=== PATIENT | female | born 2000 | race Hispanic/Latino ===

== ENCOUNTER 2020-02-04 16:43 | Emergency (ER) | payer OTHER, SELFPAY ==
[2020-02-04 16:52] VITALS: BP 129/79; PULSE 127; RESP 16; TEMP 36.7; O2SAT 96; BMI 24.9
--- NOTE | 2020-02-04 16:58 | ED_ITS ---
HPI - Nausea/Vomiting/Diarrhea <MARTELL Ni - Last Filed: 02/04/20 20:58> General Chief complaint: Nausea/Vomiting/Diarrhea Stated complaint: 11wks , not keeping food down, rash on denae Time Seen by Provider: 02/04/20 16:53 Source: patient Mode of arrival: Wheelchair Limitations: no limitations History of Present Illness HPI Narrative: 19yo female who is currently 11 weeks , presents to the emergency department for hyperemesis. Patient states she has dealt with v omiting multiple times a day since beginning of her . She was seen in her primary care provider's office today for evaluation of the rash on her back that has been present for the past 3 weeks. She describes it as pruritic and slowly spreading. However, during the appointment she had an increased heart rate of approximately 140bpm, patient was referred to the emergency department for fluid and treatment if hyperemesis. She is currently being set up with a PICC line and scheduled IV fluids but this has not established at this time yet. She has Zofran and Phenergan suppositories at home. She has stopped taking the Phenergan suppositories as she feels like it is giving her yeast infection. Patient denies any abdominal pain, vaginal bleeding, dizziness, chest pain, shortness of breath, fevers, sore throat, dysuria, or any other concerns. Patient states she last vomited approximately 2 hours ago before her appointment. Related Data Previous Rx's Medication Instructions Recorded cephalexin 500 mg PO QID 7 Days #28 cap 02/04/20 metoclopramide HCl [Reglan] 10 mg PO Q6H PRN #14 tab 02/04/20 mupirocin 1 applictn TOP BID #22 gram 02/04/20 Allergies Allergy/AdvReac Type Severity Reaction Status Date / Time Penicillins Allergy Verified 02/04/20 19:18 Review of Systems <MARTELL Ni - Last Filed: 02/04/20 20:58> Review of Systems Narrative: REVIEW OF SYSTEMS: GENERAL: Denies fevers or chills. HENT: No head trauma. EYES: No vision changes. CARDIOVASCULAR: No chest pain. RESPIRATORY: No shortness of breath or cough. GASTROINTESTINAL: Complains vomiting, see HPI GENITOURINARY: No flank pain, urinary incontinence, hesitancy, frequency, or dysuria. No vaginal discharge or dyspareunia. Denies concerns for STIs. No vaginal bleeding. MUSCULOSKELETAL: No pain, weakness, or trauma. INTEGUMENTARY: No rash, lesions, or pruritus. NEURO: No numbness, tingling, memory loss, confusion, or headaches. PSYCH: No behavior or mood changes. Patient History <MARTELL Ni - Last Filed: 02/04/20 20:58> Social History Smoking Status: Never smoker Smoking Status: Never smoker Substance Use Type: does not use Exam <MARTELL Ni - Last Filed: 02/04/20 20:58> Initial Vital Signs Initial Vital Signs: Vital Signs Temperature 98.0 F 02/04/20 16:52 Pulse Rate 127 H 02/04/20 16:52 Respiratory Rate 16 02/04/20 16:52 Blood Pressure 129/79 02/04/20 16:52 Pulse Oximetry 96 02/04/20 16:52 PHYSICAL EXAMINATION: GENERAL: Well groomed, alert, and cooperative. Answers questions promptly and appropriately. Vital signs noted. HENT: Normocephalic, atraumatic. Hearing intact. Oral mucosa is pink and moist. EYES: Conjunctiva pink, sclera white, no periorbital swelling. CARDIOVASCULAR: S1 and S2 sounds normal. Regular rate and rhythm, no murmurs, clicks, or bruits. No pedal edema. RESPIRATORY: Normal respiratory rate, trachea midline, airway patent. No stridor, nasal flaring or accessory muscle use. Lungs are clear in all onofre without wheeze, rhonchi, or crackles. GASTROINTESTINAL: Bowel sounds normoactive. Abdomen is soft and non-tender. No organomegaly, no palpable masses. GENITALURINARY: No flank tenderness. MUSCULOSKELETAL: Normal gait and coordination. Equal tone and mass bilaterally. EXTREMITIES: CMS intact, no pedal edema. SKIN: Warm, dry, soft, appropriate color for ethnicity. Multiple patches of mildly erythemic raised papules with an occasional pustule noted on patient's left shoulder extending to her back, reports pruritus. NEURO: Alert and Oriented X 3. Good coordination. No ataxia, or sensory deficits, or cognitive issues. PSYCH: Appropriate affect and mood. <Salo Barfield MD - Last Filed: 02/05/20 02:26> Initial Vital Signs Initial Vital Signs: Vital Signs Temperature 98.0 F 02/04/20 16:52 Pulse Rate 127 H 02/04/20 16:52 Respiratory Rate 16 02/04/20 16:52 Blood Pressure 129/79 02/04/20 16:52 Pulse Oximetry 96 02/04/20 16:52 Course <Josy MARTELL Marie - Last Filed: 02/04/20 20:58> Course Course Narrative: 181: Patient states she is feeling much better, no vomiting since 1500 today, reports feeling less nauseated. HR currently 104. Discussed few trial and treatment of rash. 163: OB unable to find heart tones at this time due to young gestation. Patient able to keep pills and water down without vomiting. Continues to feel better. 0: Patient given a 3rd L of fluids as she has not urinated at this time, continues to denies nausea vomiting. Patient able a case fluids down at this time. 0: Patient able to urinate at this time, 3rd L finished. Patient feels comf ortable being discharged, patient feels, this time Orders Ordered: ED Orders 02/04/20 20:40 Urine Culture Stat Urine Microscopic Stat Discontinued Medications Cephalexin HCl (Keflex) 500 mg PO NOW ONE Stop: 02/04/20 19:16 Last Admin: 02/04/20 19:19 Dose: 500 mg Documented by: MMCFARL Sodium Chloride (Normal Saline 0.9%) 1,000 mls @ 1,000 mls/hr IV BOLUS ONE Stop: 02/04/20 17:52 Last Infusion: 02/04/20 18:05 Dose: 0 mls/hr Documented by: Admin: 02/04/20 17:15 Dose: 1,000 mls/hr Documented by: RSTONE Sodium Chloride (Normal Saline 0.9%) 1,000 mls @ 1,000 mls/hr IV BOLUS ONE Stop: 02/04/20 18:34 Last Infusion: 02/04/20 19:15 Dose: 1,000 mls/hr Documented by: Admin: 02/04/20 18:08 Dose: 1,000 mls/hr Documented by: RSTONE Sodium Chloride (Normal Saline 0.9%) 1,000 mls @ 150 mls/hr IV CONT MADELINE Last Admin: 02/04/20 18:13 Dose: Not Given Documented by: ELVA Sodium Chloride (Normal Saline 0.9%) 1,000 mls @ 1,000 mls/hr IV BOLUS ONE Stop: 02/04/20 20:21 Last Infusion: 02/04/20 20:34 Dose: 1,000 mls/hr Documented by: LUIS ALFREDO Admin: 02/04/20 19:23 Dose: 1,000 mls/hr Documented by: LUIS ALFREDO Metoclopramide HCl (Reglan) 10 mg IV NOW ONE Stop: 02/04/20 16:54 Last Admin: 02/04/20 17:16 Dose: 10 mg Documented by: ELVA Ondansetron HCl (Zofran) 4 mg IV NOW ONE Stop: 02/04/20 16:54 Last Admin: 02/04/20 17:16 Dose: 4 mg Documented by: ELVA Potassium Chloride (Klor-Con M20) 40 meq PO NOW ONE Stop: 02/04/20 18:11 Last Admin: 02/04/20 18:23 Dose: 40 meq Documented by: ELVA Consultations Consultation #1: Vital Signs Vital signs: Vital Signs - 8 hr 02/04/20 19:16 02/04/20 19:17 Pulse Rate 105 H 102 H Blood Pressure 110/67 Pulse Oximetry 100 100 <Salo Barfield MD - Last Filed: 02/05/20 02:26> Orders Ordered: ED Orders 02/04/20 20:40 Urine Culture Stat Urine Microscopic Stat Discontinued Medications Cephalexin HCl (Keflex) 500 mg PO NOW ONE Stop: 02/04/20 19:16 Last Admin: 02/04/20 19:19 Dose: 500 mg Documented by: LUIS ALFREDO Sodium Chloride (Normal Saline 0.9%) 1,000 mls @ 1,000 mls/hr IV BOLUS ONE Stop: 02/04/20 17:52 Last Infusion: 02/04/20 18:05 Dose: 0 mls/hr Documented by: Admin: 02/04/20 17:15 Dose: 1,000 mls/hr Documented by: ELVA Sodium Chloride (Normal Saline 0.9%) 1,000 mls @ 1,000 mls/hr IV BOLUS ONE Stop: 02/04/20 18:34 Last Infusion: 02/04/20 19:15 Dose: 1,000 mls/hr Documented by: LUIS ALFREDO Admin: 02/04/20 18:08 Dose: 1,000 mls/hr Documented by: ELVA Sodium Chloride (Normal Saline 0.9%) 1,000 mls @ 150 mls/hr IV CONT MADELINE Last Admin: 02/04/20 18:13 Dose: Not Given Documented by: ELVA Sodium Chloride (Normal Saline 0.9%) 1,000 mls @ 1,000 mls/hr IV BOLUS ONE Stop: 02/04/20 20:21 Last Infusion: 02/04/20 20:34 Dose: 1,000 mls/hr Documented by: LUIS ALFREDO Admin: 02/04/20 19:23 Dose: 1,000 mls/hr Documented by: LUIS ALFREDO Metoclopramide HCl (Reglan) 10 mg IV NOW ONE Stop: 02/04/20 16:54 Last Admin: 02/04/20 17:16 Dose: 10 mg Documented by: ELVA Ondansetron HCl (Zofran) 4 mg IV NOW ONE Stop: 02/04/20 16:54 Last Admin: 02/04/20 17:16 Dose: 4 mg Documented by: ELVA Potassium Chloride (Klor-Con M20) 40 meq PO NOW ONE Stop: 02/04/20 18:11 Last Admin: 02/04/20 18:23 Dose: 40 meq Documented by: ELVA Vital Signs Vital signs: Vital Signs - 8 hr 02/04/20 19:16 02/04/20 19:17 Pulse Rate 105 H 102 H Blood Pressure 110/67 Pulse Oximetry 100 100 MDM - Nausea/Vomiting/Diarrhea <MARTELL Ni - Last Filed: 02/04/20 20:58> Medical Records Attestation: I reviewed the patient's medical records. Lab Data Attestation: I reviewed the patient's lab results. Result diagrams: 02/04/20 17:02 02/04/20 17:02 Labs: Lab Results 02/04/20 02/04/20 02/04/20 Range/Units 17:02 17:02 20:40 WBC 7.8 (4.5-11.0) X10^3/uL RBC 4.38 (4.0-5.2) X10^6/uL Hgb 13.3 (12.0-16.0) g/dL Hct 37.0 (36-46) % MCV 84.5 (80-100) fL MCH 30.4 (26-34) PG MCHC 35.9 (30-36) % RDW 12.5 (11.6-14.8) % Plt Count 236 (150-400) X10^3/uL Neut % (Auto) 73.9 (50-75) % Lymph % (Auto) 18.9 L (25-40) % [place] % (Auto) 6.6 (3-14) % Eos % (Auto) 0.3 L (2-4) % Baso % (Auto) 0.3 (0-2) % Neut # (Auto) 5700 (7833-6302) /uL Lymph # (Auto) 1500 (9136-4193) /uL [place] # (Auto) 500 (0-900) /uL Eos # (Auto) 0 (0-450) /uL Baso # (Auto) 0 (0-100) /uL Sodium 133 L (137-145) mmol/L Potassium 3.0 L (3.4-5.1) mmol/L Chloride 99 (98-107) mmol/L Carbon Dioxide 20 L (22-32) mmol/L BUN 7 (7-17) mg/dL Creatinine 0.36 L (0.52-1.04) mg/dL Estimated GFR > 60.0 (>60) mL/min BUN/Creatinine Ratio 19.4 (6-22) Glucose 112 H (70-100) mg/dL Calcium 10.1 (8.4-10.2) mg/dL Total Bilirubin 0.8 (0.2-1.3) mg/dL AST 64 H (14-36) IU/L ALT 155 H (<35) IU/L Alkaline Phosphatase 75 (38-126) U/L Total Protein 7.9 (6.3-8.2) g/dL Albumin 4.4 (3.5-5.0) g/dL Globulin 3.5 (1.7-4.1) g/dL Albumin/Globulin Ratio 1.3 (1.0-2.8) Urine RBC 0-1/hpf (0-5/HPF) Urine WBC 5-10/hpf H (0-5/HPF) Ur Squamous Epith Cells 1-5 /hpf (0-5/HPF) Ur Transition Epith Cell 1-5/hpf (0-5/HPF) Urine Bacteria Occasional (0-1) (None) Urine Mucus 2+ H (Negative) Ur Culture Indicated? Specimen cultured Urine Dip Bedside Urine Glucose Negative Bedside Urine Bilirubin - Negative Bedside Urine Ketone +++ 80 Urine Specific [place] 1.015 Bedside Urine Occult Blood +/- Bedside Urine pH 6.0 Bedside Urine Protein + 30 Bedside Urine Urobilinogen +/- 1mg Bedside Urine Nitrite - Negative Bedside Urine Leukocytes + 70 Esterase MDM Narrative Medical decision making narrative: 19-year-old female who is 11 weeks , presents emergency department for hyperemesis and rash. Hyperemesis was treated with ondansetron, Reglan, and 3L of fluids. After the 3rd L, patient was able to urinate, heart rate decreased. P.o. potassium was given to replenish potassium deficiency. No vomiting occurred in the emergency department, she was able to tolerate fluids and food. Less concern for infection due to lack of pain, POC urine without white or red blood cells. Less concern for compromise due to lack of abdominal pain, lack of vaginal bleeding, trauma, and lack of cramping. Patient was encouraged to follow up with her appointment as scheduled on Sunday to place a PICC line for fluid infusion. Differential for rash include, most likely folliculitis versus impetigo given papules and pustules that are present. Patient was given cephalexin and mupirocin as the rash is on her back and a small amount on her face as well. Less concern for sepsis due to lack of fever, patient is hemodynamically stable. No WBC. Return precautions given for new worsening symptoms. Patient agrees to plan of care verbalized understanding. <Salo Barfield MD - Last Filed: 02/05/20 02:26> Lab Data Labs: Lab Results 02/04/20 02/04/20 02/04/20 Range/Units 17:02 17:02 20:40 WBC 7.8 (4.5-11.0) X10^3/uL RBC 4.38 (4.0-5.2) X10^6/uL Hgb 13.3 (12.0-16.0) g/dL Hct 37.0 (36-46) % MCV 84.5 (80-100) fL MCH 30.4 (26-34) PG MCHC 35.9 (30-36) % RDW 12.5 (11.6-14.8) % Plt Count 236 (150-400) X10^3/uL Neut % (Auto) 73.9 (50-75) % Lymph % (Auto) 18.9 L (25-40) % [place] % (Auto) 6.6 (3-14) % Eos % (Auto) 0.3 L (2-4) % Baso % (Auto) 0.3 (0-2) % Neut # (Auto) 5700 (4755-1183) /uL Lymph # (Auto) 1500 (7590-5081) /uL [place] # (Auto) 500 (0-900) /uL Eos # (Auto) 0 (0-450) /uL Baso # (Auto) 0 (0-100) /uL Sodium 133 L (137-145) mmol/L Potassium 3.0 L (3.4-5.1) mmol/L Chloride 99 (98-107) mmol/L Carbon Dioxide 20 L (22-32) mmol/L BUN 7 (7-17) mg/dL Creatinine 0.36 L (0.52-1.04) mg/dL Estimated GFR > 60.0 (>60) mL/min BUN/Creatinine Ratio 19.4 (6-22) Glucose 112 H (70-100) mg/dL Calcium 10.1 (8.4-10.2) mg/dL Total Bilirubin 0.8 (0.2-1.3) mg/dL AST 64 H (14-36) IU/L ALT 155 H (<35) IU/L Alkaline Phosphatase 75 (38-126) U/L Total Protein 7.9 (6.3-8.2) g/dL Albumin 4.4 (3.5-5.0) g/dL Globulin 3.5 (1.7-4.1) g/dL Albumin/Globulin Ratio 1.3 (1.0-2.8) Urine RBC 0-1/hpf (0-5/HPF) Urine WBC 5-10/hpf H (0-5/HPF) Ur Squamous Epith Cells 1-5 /hpf (0-5/HPF) Ur Transition Epith Cell 1-5/hpf (0-5/HPF) Urine Bacteria Occasional (0-1) (None) Urine Mucus 2+ H (Negative) Ur Culture Indicated? Specimen cultured Urine Dip Bedside Urine Glucose Negative Bedside Urine Bilirubin - Negative Bedside Urine Ketone +++ 80 Urine Specific [place] 1.015 Bedside Urine Occult Blood +/- Bedside Urine pH 6.0 Bedside Urine Protein + 30 Bedside Urine Urobilinogen +/- 1mg Bedside Urine Nitrite - Negative Bedside Urine Leukocytes + 70 Esterase Discharge Plan Departure Patient Disposition: Home Clinical Impression: Folliculitis, Hyperemesis gravidarum Discharge Date/Time: 02/04/20 21:00 Instructions: DI for Hyperemesis Gravidarum, Folliculitis Activity Restrictions/Additional Instructions: Thank you for entrusting me with your care today. As discussed, your labs show that your potassium was slightly low, I suggest drinking fluids with electrolytes such as Gatorade or Pedialyte as tolerated. I have given you a prescription for Reglan which is an anti nausea medication, take this as needed. Additionally, I believe that you have folliculitis which is an infection in your skin. Prescribed you an oral antibiotic called cephalexin, take this as prescribed. And apply the mupirocin ointment twice a day for a week. Follow-up with your primary care provider for further evaluation of this rash. Follow-up with your primary care provider for establishment of IV fluids for your hyperemesis. Return emergency department for any new or worsening symptoms such as shortness of breath, abdominal pain, vaginal bleeding, uncontrollable vomiting, or any other concerns. Prescriptions: New mupirocin 2 % ointment 1 applictn TOP BID Qty: 22 RF: 0 cephalexin 500 mg capsule 500 mg PO QID 7 Days Qty: 28 RF: 0 metoclopramide HCl [Reglan] 10 mg tablet 10 mg PO Q6H PRN (Reason: nausea and vomiting) Qty: 14 RF: 0 <Salo Barfield MD - Last Filed: 02/05/20 02:26> Cosign ED Attending Cosignature Attestation: I was immediately available in the department for consultation. This documentation has been reviewed and I agree with assessment and plan. Supervised by Salo Barfield MD
[2020-02-04] MEDS: SODIUM CHLORIDE 0.9% 1,000 ML 1000 ML IV ×3 (17:15→19:23)
[2020-02-04] MEDS: METOCLOPRAMIDE 10 MG/2 ML INJ IV (17:16)
[2020-02-04] MEDS: ONDANSETRON 4 MG/2 ML INJ IV (17:16)
[2020-02-04 17:19] LABS: Add Manual Diff / Slide Review NO; Basophils Absolute Auto 0 /uL (0-100); Basophils Percent Auto 0.3 % (0-2); Eosinophils Absolute Auto 0 /uL (0-450); Eosinophils Percent Auto 0.3 % (2-4); Hemoglobin 13.3 g/dL (12.0-16.0); Lymphocytes Absolute Auto 1500 /uL (1100-4500); Lymphocytes Percent Auto 18.9 % (25-40); Mean Corpuscular HGB Conc 35.9 % (30-36); Mean Corpuscular Hemoglobin 30.4 PG (26-34); Mean Corpuscular Volume 84.5 fL (80-100); Monocytes Absolute Auto 500 /uL (0-900); Monocytes Percent Auto 6.6 % (3-14); Neutrophils Absolute Auto 5700 /uL (1500-7000); Neutrophils Percent Auto 73.9 % (50-75); Platelet Count 236 X10^3/uL (150-400); Red Blood Cell Count 4.38 X10^6/uL (4.0-5.2); Red Cell Distribution Width 12.5 % (11.6-14.8); White Blood Cell Count 7.8 X10^3/uL (4.5-11.0)
[2020-02-04 17:25] LABS: Alanine Aminotransferase 155 IU/L (<35); Albumin 4.4 g/dL (3.5-5.0); Albumin Globulin Ratio 1.3 (1.0-2.8); Alkaline Phosphatase 75 U/L (38-126); Aspartate Aminotransferase 64 IU/L (14-36); BUN Creatinine Ratio 19.4 (6-22); Bilirubin Total 0.8 mg/dL (0.2-1.3); Blood Urea Nitrogen 7 mg/dL (7-17); Calcium 10.1 mg/dL (8.4-10.2); Carbon Dioxide 20 mmol/L (22-32); Chloride 99 mmol/L (98-107); Estimated Glomerular Filt Rate > 60.0 mL/min (>60); Globulin 3.5 g/dL (1.7-4.1); Glucose 112 mg/dL (70-100); HEMOLYSIS < 15 (0-50); Sodium 133 mmol/L (137-145); Total Protein 7.9 g/dL (6.3-8.2)
[2020-02-04 18:11] VITALS: BP 113/74; PULSE 98; RESP 16; O2SAT 98
[2020-02-04] MEDS: POTASSIUM CHLORIDE 20 MEQ TAB 40 MEQ PO (18:23)
--- NOTE | 2020-02-04 18:55 | PC.NURSE ---
OB unable to hear FHT. MARTELL Ferris
[2020-02-04 19:16] VITALS: PULSE 105; O2SAT 100
[2020-02-04 19:17] VITALS: BP 110/67; PULSE 102; O2SAT 100
[2020-02-04] MEDS: cephALEXin 250 MG CAPSULE 500 MG PO (19:19)
[2020-02-04 21:15] LABS: Bacteria Urine Occasional (0-1); Mucus Urine 2+ (Negative); RBC Urine 0-1/HPF (0-5/HPF); Squamous Epithelial Cell Urine 1-5 /HPF (0-5/HPF); Transitional Epi Cells Urine 1-5/HPF (0-5/HPF); WBC Urine 5-10/HPF (0-5/HPF)
[2020-02-04 21:16] LABS: Culture Indicated Urine Specimen Cultured
== END 2020-02-04 21:00 | disposition home or self-care (01) ==
PROVIDERS: Emergency Provider Nurse Practitioner
DX: O21.0 Mild hyperemesis gravidarum (principal); L73.9 Follicular disorder, unspecified; Z3A.11 11 weeks gestation of pregnancy
CPT/HCPCS: 36415; 80053; 81003; 81015; 85025; 87086; 96361; 96374; 96375; 99284; J2405; J2765

== ENCOUNTER 2023-11-20 06:20 | Emergency (ER) | payer OTHER, SELFPAY ==
[2023-11-20 06:25] VITALS: BP 108/62; PULSE 79; RESP 16; TEMP 36.4; O2SAT 99; BMI 26.5
[2023-11-20 06:26] VITALS: BP 108/62; PULSE 80; RESP 14; TEMP 36.4; O2SAT 99
--- NOTE | 2023-11-20 06:28 | ED.FEMALEGU ---
HPI - Female Genitourinary General Chief complaint: Urogenital-Female Stated complaint: UTI pelvic pain with light bleeding Time Seen by Provider: 11/20/23 06:28 History of Present Illness HPI Narrative: 23-year-old female presents for burning with urination and frequency for 4 days. Concerned she has a UTI. No recent antibiotic use. Denies flank pain, fevers. Related Data Previous Rx's Medication Instructions Recorded metoclopramide HCl 10 mg tablet 10 mg PO Q6H PRN nausea and 02/04/20 (Reglan) vomiting #14 tabs mupirocin 2 % topical ointment 1 applictn topical BID #22 grams 02/04/20 nitrofurantoin macrocrystal 100 mg 100 mg PO BID #10 caps 11/20/23 capsule ondansetron 4 mg disintegrating 4 mg PO Q8H PRN nausea and 11/20/23 tablet vomiting #30 tabs Allergies Allergy/AdvReac Type Severity Reaction Status Date / Time Penicillins Allergy Verified 11/20/23 06:34 Review of Systems Review of Systems Narrative: See HPI Patient History Substance Use Type: does not use Exam Initial Vital Signs Initial Vital Signs: Vital Signs Temperature 97.6 F 11/20/23 06:25 Pulse Rate 79 11/20/23 06:25 Respiratory Rate 16 11/20/23 06:25 Blood Pressure 108/62 11/20/23 06:25 Pulse Oximetry 99 11/20/23 06:25 Oxygen Delivery Method Room Air 11/20/23 06:25 Const: Awake, alert, no acute distress, nontoxic appearing MSK: No midline tenderness, no CVA tenderness bilaterally Skin: Warm, Dry, intact, no rashes Neuro: AO x3, CN II-XII grossly intact, moves all extremities Course Orders Ordered: ED Orders 11/20/23 06:39 Urine Microscopic Stat Vital Signs Vital signs: Vital Signs - 8 hr 11/20/23 06:25 11/20/23 06:26 Temperature 97.6 F 97.6 F Pulse Rate 79 80 Respiratory Rate 16 14 Blood Pressure 108/62 108/62 Pulse Oximetry 99 99 Oxygen Delivery Method Room Air Room Air MDM - Female Genitourinary Lab Data Labs: Point of Care Testing Test Results Negative Urine Dip Bedside Urine Glucose Negative Bedside Urine Bilirubin - Negative Bedside Urine Ketone - Negative Urine Specific [place] 1.020 Bedside Urine Occult Blood +++ Bedside Urine pH 6.0 Bedside Urine Protein - Negative Bedside Urine Urobilinogen - Negative Bedside Urine Nitrite - Negative Bedside Urine Leukocytes +++ 500 Esterase MDM Narrative Medical decision making narrative: Several days of UTI symptoms. No signs or symptoms of pyelonephritis. Patient nontoxic in appearance. Urine dip positive for leukocyte esterase and blood blood, sent for culture. Patient counseled on results, antibiotics and nausea medication sent to pharmacy of choice. Recommended azo as needed for burning sensation. Discharge Plan Departure Patient Disposition: Home Clinical Impression: Urinary tract infection Instructions: DI for Urinary Tract Infection (UTI) Activity Restrictions/Additional Instructions: Make sure to drink plenty of fluids. Follow up as usual with your primary care physician. Nausea medication has been sent to your pharmacy along with antibiotics. Prescriptions: New nitrofurantoin macrocrystal 100 mg capsule 100 mg PO BID Qty: 10 0RF Rx Instructions: must administer with a meal/food ondansetron 4 mg tablet,disintegrating 4 mg PO Q8H PRN (Reason: nausea and vomiting) Qty: 30 0RF No Action mupirocin 2 % ointment 1 applictn TOP BID Qty: 22 0RF metoclopramide HCl [Reglan] 10 mg tablet 10 mg PO Q6H PRN (Reason: nausea and vomiting) Qty: 14 0RF Stand Alone Forms: Patient Portal/API
[2023-11-20 06:54] LABS: Bacteria Urine Moderate (10-30); Culture Indicated Urine Specimen Cultured; RBC Urine 1-5/HPF (0-5/HPF); Squamous Epithelial Cell Urine 1-5 /HPF (0-5/HPF); Urine Volume 10mL (spun); WBC Urine 30-100/HPF (0-5/HPF)
== END 2023-11-20 06:57 | disposition home or self-care (01) ==
PROVIDERS: Emergency Provider Emergency Medicine
DX: N39.0 Urinary tract infection, site not specified (principal)
CPT/HCPCS: 81003; 81015; 81025; 87086; 99282